=== PATIENT | female | born 1970 | race Caucasian/White ===

== ENCOUNTER 2016-12-26 17:05 | Emergency (ER) | payer OTHER ==
[~2016-12-26] VITALS: Ht 154.9 cm; Wt 140.2 kg
[~2016-12-26 17:05] MED LIST: AMOXICILLIN500 MG PO; CLARITIN10 MG PO; CYCLOBENZAPRINE10 MG PO; GABAPENTIN600 MG PO; GUIATUSS DM SY473 ML PO; IBUPROFEN800 MG PO; LORAZEPAM1 MG PO; NORCO 5-325 TA1 EACH PO; OMEPRAZOLE MAGN20 MG PO; PAXIL40 MG PO; PREDNISONE20 MG PO; PROZAC10 MG PO; SPIRONOLACTONE50 MG PO; SUMATRIPTAN SUC50 MG PO; SYNTHROID100 MCG PO; TOPAMAX25 MG PO; TOPROL XL50 MG; V-C FORTE CAPSUL1 MG PO; VITAMIN D5000 UNIT PO; WELLBUTRIN100 MG PO; ZOFRAN4 MG PO
[2016-12-26] MEDS ORDERED: IMITREX25 MG PO (18:23)
[2016-12-26] MEDS ORDERED: ESTRADIOL1 MG PO (21:23)
[2017-04-05] MEDS ORDERED: FLUOXETINE HCL20 MG PO (13:07)
[2017-04-05] MEDS ORDERED: VITAMIN D35000 UNI1 PO (13:08)
[2017-04-05] MEDS ORDERED: IMITREX100 MG PO (13:08)
== END 2016-12-26 21:34 | disposition home or self-care (01) ==
LOC: ED 17:05
PROC: 0T9B70Z Drainage of Bladder with Drainage Device, Via Natural or Artificial Opening (ICD-10-PCS; principal; 2016-12-26)
DX: N93.8 Other specified abnormal uterine and vaginal bleeding (principal); J45.909 Unspecified asthma, uncomplicated; E03.9 Hypothyroidism, unspecified; F32.9 Major depressive disorder, single episode, unspecified; F41.9 Anxiety disorder, unspecified; F17.200 Nicotine dependence, unspecified, uncomplicated; Z90.49 Acquired absence of other specified parts of digestive tract; Z98.51 Tubal ligation status; Z91.018 Allergy to other foods; Z79.899 Other long term (current) drug therapy
CPT/HCPCS: 51701; 74177; 80053; 81001; 83690; 84703; 85025; 96374; 96375; 99284; J1170; J1885; J2405; J7030; Q9967

== ENCOUNTER 2017-04-11 07:15 | Inpatient (IN) | payer OTHER ==
[~2017-04-11] VITALS: Ht 154.9 cm; Wt 145.2 kg
[~2017-04-11 07:15] MED LIST changes: +ESTRADIOL1 MG PO; +FLUOXETINE HCL20 MG PO; +IMITREX100 MG PO; +IMITREX25 MG PO; +VITAMIN D35000 UNI1 PO
--- NOTE | 2017-04-11 12:38 | NUR ---
04/11/17 Taina Arreaga 1210 PT ARRIVED COUGHING.
--- NOTE | 2017-04-11 13:28 | NUR ---
PT TO ROOM 10 FROM PACU. PT AWAKE, TALKING AND LOOKING ON HER PHONE WHEN BEING WHEELED BACK FROM PACU. UPON ARRIVING TO THE ROOM PT C/O DIZZINESS AND NAUSEA. ZOFRAN GIVEN. R KNEE DRSG C/D/I, ICE TO SURGICAL SITE. PT REQUEST 7UP, SODA GIVEN. NO FURTHER NEEDS AT THIS TIME, CALL LIGHT IN REACH.
--- NOTE | 2017-04-11 14:27 | NUR ---
PT IS AWAKE. SHE IS C/O NAUSEA, SHE IS ASKING FOR CRACKERS AND MILK. SHE REPORTS SOME PAIN IN HER KNEE. NO OTHER C/O'S AT THIS TIME. WILL REASSESS WITHIN THE HOUR.
--- NOTE | 2017-04-11 14:32 | NUR ---
PT REPORTS FEELING REALLY WARM, HER TEMP WAS WNL. FAUZIA BRADLEY TURNED ON TO BLOW COOL AIR ON PT, SHE IS APPRECIATIVE OF THIS.
--- NOTE | 2017-04-11 15:37 | NUR ---
CALLED TO NOTIFY OF CONSULT ORDER
--- NOTE | 2017-04-11 15:43 | NUR ---
PT TO FLOOR VIA STRETCHER WITH INDUSTRIAL MAINTENANCE TECHNICIANLORENZO COLLINS. PT A LITTLE NAUSEOUS. EATING CRACKERS AND DRINKING SODA. STATES SHE HAS TO USE THE BATHROOM, WILL USE THE COMMODE THIS TIME.
[2017-04-11] MEDS ORDERED: CALCIUM 500 +1 EAC1 PO (16:25)
--- NOTE | 2017-04-11 16:29 | NUR ---
PT UP TO BEDSIDE COMMODE. HAD SMALL AMT OF URINE AND BM SMEAR ON BEDDING. CHANGED. PT PIVOT TRANSFER WITH FWW. PT NAUSOUS GIVEN PHENGREN. PT ITCHING GIVEN SUBQ NUBAIN. PT TOLERATED BOTH WELL.
[2017-04-11] MEDS ORDERED: FOLIC ACID1 MG PO (16:32)
--- NOTE | 2017-04-11 16:36 | NUR ---
MED REC COMPLETE WITH [facility] REFILL HISTORY.
--- NOTE | 2017-04-11 17:50 | NUR ---
ADMINISTERED ANTIBIOTIC. PT RESTING IN BED. PT REPORTS PAIN UNDER CONTROL. DENIES NEEDS.
--- NOTE | 2017-04-11 19:41 | NUR ---
ENTERED PT'S ROOM TO RECIEVE BEDSIDE REPORT FROM DAYSHIFT RN. PT WAS AT BEDSIDE ATTEMPTING TO GET UP OUT OF BED. EDUCATED PT ON SAFETY AND FALL PREVENTION AND THE IMPORTANENCE OF CALLING FOR HELP BEFORE GETTING UP. RN MADE IT VERY CLEAR THAT HAVING SOMEONE ASSIST HER IS NOT NEGOTIABLE, THAT A STAFF MEMBER MUST ASSIST PT WHEN SHE GETS UP OR SITS AT THE BEDSIDE. PT IS VERY IMPULSIVE AND DOES NOT APPEAR TO BE VERY COOPERATIVE. SHE APPEARED ANNOYED AT WITH THE EDUCATION GIVEN. PT ALSO STATED "IM NOT BLEEDING I LOOKED UNDER THE BANDAGE," WHILE LIFTING HER DRESSING; RN EDUCATED PT ON THE IMPORTANCE OF LEAVING THE DRESSING IN PLACE AND INFECTION CONTROL REGARDING HER FRESH SURGICAL SITE. BED ALARM ACTIVATED FOR PT SAFETY.
--- NOTE | 2017-04-11 20:25 | NUR ---
PT SITTING UP IN BED. TALKATIVE AND PLEASENT AT THIS TIME. ALERT AND ORIENTED X4. DRESSING IS CLEAN AND DRY, INTACT BUT A LITTLE WRINKLED UP, WILL MONITOR. GAVE ICE CREAM PER PT REQUEST. DENIES NAUSEA. DENIES PRURITIS. FRESH ICE PACKS IN PLACE. FRESH ICE WATER AT BEDSIDE. BED ALARM ACTIVATED. CALL LIGHT IN REACH. NO FURTHER NEEDS. CRYO CUFF, HEEL PROTECTORS, SCD'S IN PLACE.
--- NOTE | 2017-04-11 22:06 | NUR ---
PT SET BED ALARM OFF, ATTEMPTING TO SIT AT BEDSIDE. ASSISTED PT TO SIT UP AT BEDSIDE. PT REPORTS FEELING ANXIOUS, AND FEELS LIKE SHE "NEEDS TO DO SOMETHING." GAVE A WARM BLANKET TO HELP HER RELAX. ALSO ORDERED HER A LUNCH BOX PER REQUEST. PT RATES PAIN AT 5/10 AND STATES "AND ITS GOING DOWN." CALL LIGHT IN REACH.
--- NOTE | 2017-04-11 22:43 | NUR ---
PT SITTING UP AT BEDSIDE, EATING LUNCH BOX. NO NEEDS AT THIS TIME.
--- NOTE | 2017-04-12 00:10 | NUR ---
pt appears to be sleeping. rr wnl and unlabored. lights and tv off. fiance asleep on sofa in room.
--- NOTE | 2017-04-12 01:20 | NUR ---
pt called nurses station. incontinent of urine. assisted pt up to bsc to void. changed linens and cleaned pt up. pt back in bed. complained of pruritis, gave benedryl iv. pt has call light. no further needs.
--- NOTE | 2017-04-12 04:01 | NUR ---
pt sitting up awake in bed, playing on her phone when rn entered room. pt reports 6/10 pain, gave scheduled toradol and oxycodone prn. gave a cola per pt request. call light in reach. no further needs.
--- NOTE | 2017-04-12 05:25 | NUR ---
pt up to bsc, tolerated transfer with 1 person assist and fww well. pt back in bed. rates pain at 5/10, states "im fine right now though." no further needs. call light in reach.
--- NOTE | 2017-04-12 07:27 | NUR ---
REPORT RECIEVED FROM LORENZO CLEMENTS PT AWAKE AND WATCHING TV. STATES THAT SHE DID NOW SLEEP MUCH LAST NIGHT.
--- NOTE | 2017-04-12 08:22 | OR ---
[facility] [address], [place] [address] Signed DATE OF OPERATION: 04/11/2017 SURGEON: Berry Luther MD PREOPERATIVE DIAGNOSIS: End-stage osteoarthritis with varus collapse right knee. POSTOPERATIVE DIAGNOSIS: End-stage osteoarthritis with varus collapse right knee. PROCEDURE: Right total knee arthroplasty. ANESTHESIA: Spinal with sedation. SPECIMENS AND COMPLICATIONS: There were no specimens or complications. TOURNIQUET TIME: 90 minutes. WHAT WAS DONE: The patient was taken to the operating room. After anesthesia was induced and the patient sedated, the right lower extremity was positioned, prepped and draped in the routine sterile fashion. A straight anterior approach was made centered over the patella after exsanguinating the leg and inflating the pneumatic tourniquet with 200 mmHg pressure. The subcutaneous tissue was bluntly spread and an anteromedial arthrotomy performed. The patella was turned on edge and about 9-1/2 mm were trimmed off the posterior aspect of the patella. Drill holes were then made for the 35 mm all-poly patellar button and after that the holes were made, we put the poly trial in place and the caliper indicated we had re-constituted the patellar height of about 24 mm. The patellar trial was then removed. The knee was gently flexed. Using the Jose navigation system, we digitized the distal femur per the Jose protocol. We then resected the distal femur in neutral varus valgus about 2 degrees of flexion and removing 10 mm off the medial side. The femoral wafers were removed. We then transitioned the navigation system to the proximal tibia and again following the [place] computer prompts digitized the proximal tibia. The proximal tibia was then resected in neutral varus valgus, 3 degrees of posterior slope per the Attune surgical protocol and removing about 5 mm off the more warrant medial side. The tibial wafer was then removed Electronically Signed By: BERRY LUTHER MD 04/12/17 0822 PATIENT NAME: MARKEL ESPINO OPERATIVE REPORT DATE OF : 72 PHYSICIAN: BERRY LUTHER MD REPORT #: [id number] REPORT IS CONFIDENTIAL AND NOT TO BE RELEASED WITHOUT AUTHORIZATION [facility] [address], [place] [address] Signed along with remnants of the medial lateral meniscus, the ACL and PCL. Femoral sizing jig was placed on the distal femur. The femur sized to a size# 6. With the jig in 3 degrees of external rotation, the pins were placed and the 4-in-1 cutting block placed on the end of the femur. Anterior, posterior, and chamfer cuts were made. The size #6 notch cutting block was then centered on the distal femur and the notch was cut out and removed. We then placed the femoral trial on the distal femur, drilled the lug hole openings. A size #5 tibial tray was then placed on the proximal tibia with a 5 mm poly trial and the knee was cycled. We had good alignment, good position, and excellent stability. Marked rotational alignment of the tibial component and then prepared the tibia with a standard reamer and a broach. The knee was then copiously irrigated and meticulously dried. The final components were then cemented into place. Cement was allowed to cure with the knee in full extension. Once the cement had cured, we re-cycled the knee and found we could actually upsize the poly to a 7 mm insert and get full extension with excellent varus/valgus balance in flexion and midrange in extension. The knee was copiously irrigated. Final poly was impacted into place and routine wound closure accomplished. A sterile dressing was applied. The patient was awakened to the recovery room where she arrived in stable condition. Counts were correct and antibiotic protocols were followed. Berry Luther MD WFB/MODL /[id number] Electronically Signed By: BERRY LUTHER MD 04/12/17 0822 PATIENT NAME: MARKEL ESPINO OPERATIVE REPORT DATE OF : 72 PHYSICIAN: BERRY LUTHER MD REPORT #: [id number] REPORT IS CONFIDENTIAL AND NOT TO BE RELEASED WITHOUT AUTHORIZATION
--- NOTE | 2017-04-12 08:30 | NUR ---
MORNING ASSESSMENT. PT EUGENIO REG BREAKFAST WELL, TRAY CLEARED. MORNING MEDS GIVEN, SEE EMAR. POC DISCUSSED FOR DAY AND PT AGREEABLE.
--- NOTE | 2017-04-12 09:45 | NUR ---
PT UP IN [place] WITH PT, EUGENIO FAIR. C/O NAUSEA. MEDICATED WITH ZOFRAN 4 MG IV. WATER FILLED.
--- NOTE | 2017-04-12 10:45 | NUR ---
PT SLEEPS. DID NOT DISTURB.
--- NOTE | 2017-04-12 11:52 | NUR ---
PT ASSISTED BACK TO BED. HAD MOVED TO CHAIR WITH ASSISTANCE OF FRIEND. REMINDED THAT A MEMBER OF STAFF HAS TO BE WITH HER TO MOVE. BED ALARM ON. REINFORCED DRESSING THERE IS A SMALL AMT OF RED DRAINAGE. STATES PAIN LEVEL IS ACCEPTABLE.
--- NOTE | 2017-04-12 12:10 | NUR ---
PT EUGENIO REG LUNCH WELL, 100% ATE, TRAY CLEARED. MEDICATED FOR INCISIONAL PAIN. DRESSING LOOSENED PER PT REQUEST.
--- NOTE | 2017-04-12 12:50 | NUR ---
PT C/O UNRELIEVED INCISIONAL PAIN. MEDICATED. OBSERVED DRESSING, NO NEW BLOOD NOTED. ICE TO INCISION. ELEVATED.
--- NOTE | 2017-04-12 16:20 | NUR ---
UP TO BR, USES WALKER WELL. PRODUCTION INTERNSHIP CHANGES LINENS. MEDICATED FOR INCISONAL PAIN. PT C/O ITCHING, BENADRYL GIVEN IV, SEE EMAR. IV SITE WNL.
--- NOTE | 2017-04-12 17:35 | NUR ---
PT EATING REG DINNER, EUGENIO WELL. REPORTS PAIN RELIEF FROM PREVIOUS PAIN MEDS. DENIES FURTHER NEEDS.
--- NOTE | 2017-04-12 18:01 | NUR ---
PT WORKED WITH PHYS. THER X2. WALKED IN MARINO. DRESSING REINFORCED FOR MODERATE RED DRAINAGE. USES FWW TO RESTROOM. VS STABLE. GIVEN BENEDRYL, OXY AND DILAUIDID PO PRN FOR PAIN. NOW RATES 4\10. IMPULSIVE BED ALARM WHILE IN BED.
--- NOTE | 2017-04-12 19:40 | NUR ---
BEDSIDE REPORT RECIEVED FROM DAYSHIFT RN. PT AWAKE WATCHING TV. RR WNL. BED ALARM IN PLACE. REPORTS NO NEEDS AT THIS TIME. CALL LIGHT WIHTIN REACH. PERSONAL ITEMS AT BEDSIDE.
--- NOTE | 2017-04-12 20:44 | NUR ---
VITALS AND I&OS DONE AND CHARTED. BEDSIDE TABLE AND CALL LIGHT WITHIN REACH. PT NEEDS NOTHING ELSE AT THIS TIME.
--- NOTE | 2017-04-12 21:20 | NUR ---
PT IN BED RESTING. FAMILY AT BEDSIDE. REPLACED ICEPACK. FILLED ICE WATER UP. PT REPORTS 10/03 PAIN. SCHEDULED PAIN MEDIACTION GIVE. NO OTHER NEEDS AT THIS TIME. CALL LIGHT WITHIN REACH. BED ALARM IN PLACE. PERSONAL ITEMS AT BEDSIDE.
--- NOTE | 2017-04-12 22:57 | NUR ---
pt reports pain still 7/10 after scheduled pain medication. 10mg oxy codone give. will reassess in 1 hour to see if pain is beter.
--- NOTE | 2017-04-13 00:34 | NUR ---
pt experiencing pain increase. from 10/03 to 11/03 now. giving full dose of dilaudid ordered 8 mg.
--- NOTE | 2017-04-13 01:17 | NUR ---
PT ASLEEP. RESPIRATIONS WNL. CALL LIGHT WITHIN REACH. NO FURTHER NEEDS AT THIS TIME.
--- NOTE | 2017-04-13 02:29 | NUR ---
pt awake when i entered the room. helped up to the bathroom. pain 5/10 at this time. pt wanted to sit up in the chair. no other needs at this time. had good conversation.
--- NOTE | 2017-04-13 03:03 | NUR ---
helped pt back to bed. pain 5/10. watching tv. filled ice water. applied ice packs to knee. arvind wrap in place with dried drainage from earlier. no further leaks tided up pt room and dumped garbages. no further needs at this time. call light within reach. personal items at bedside.
--- NOTE | 2017-04-13 05:08 | NUR ---
PT HAD A GOOD. NIGHT. PAIN UNCONTROLED AT BEGINNING OF SHIFT. PAIN MEDICATION GIVE ORDERED. PAIN THIS MORNING WAS 4/10. TOTAL RIGHT KNEE DONE. ICE PACK ON RIGHT KNEE SBA WITH FWW. REGULAR DIET.
--- NOTE | 2017-04-13 05:21 | NUR ---
PT REQUESTED VITALS AND MEDICATION SO SHE COULD SAVANNA A NAP. NO FURTHER NEEEDS AT THIS TIME. CALL LIGHT WITHIN REACH.PERSONAL ITEMS AT BEDSIDE.
--- NOTE | 2017-04-13 05:29 | NUR ---
REFRESHED ICE PACKS. NO OTHER NEEDS AT THIS TIME CALL LIGHT WITHIN REACH.
--- NOTE | 2017-04-13 08:22 | NUR ---
BEDSIDE REPORT RECEIVED FROM STARR VENTURA AT 0705. PT SLEEPING. DIDN'T WAKE UP WHEN BEDSIDE REPORT GIVEN IN ROOM. PT AWAKE WATCHING TELEVISION NOW. REPORTS WANTING TO SLEEP TODAY. INFORMED OF PLAN TO HAVE PHYSICAL THERAPY X2 TODAY. RIGHT KNEE DRESSING C/D/I. NO DRAINAGE NOTED. EDUCATED TO NOT MANIPULATE DRESSING TO AVOID INFECTION. LEFT FOREARM IV SALINE LOCKED. MORNING MEDS GIVEN SCHEDULED. ATE 100% OF BREAKFAST. BELONGINGS AND CALL LIGHT WITHIN REACH. PAIN 5/10 IN RIGHT KNEE. INFORMED PT TO CALL WHEN NEEDS TO GET UP TO BATHROOM. BED ALARM ON.
--- NOTE | 2017-04-13 09:17 | NUR ---
DR LUTHER IN TO ASSESS PT. PAIN CONTROLLED WELL. PLAN TO DISCHARGE TOMORROW.
--- NOTE | 2017-04-13 09:19 | NUR ---
PT WORKING WITH PHYSICAL THERAPY NOW.
--- NOTE | 2017-04-13 09:57 | NUR ---
RX NOT LEFT ON CHART FOR DISCHARGE. MESSAGE LEFT WITH DEACON IN HIS OFFICE TO SEND RX ORDERS.
--- NOTE | 2017-04-13 09:59 | NUR ---
MESSAGE LEFT WITH DAY SURGERY FOR DR LUTHER TO RECEIVE PAIN RX SCRIPTS WELL.
--- NOTE | 2017-04-13 10:09 | NUR ---
PT IS SITTING UP IN BED WITH CALL LIGHT IN REACH. PT HAS BRUSHED HER TEETH AND WASHED HER FACE. PT DOES NOT WANT TO SHOWER AT THE MOMENT, WILL ASK AGAIN LATER. PT DID NOT NEED ANYTHING AT THE MOMENT
--- NOTE | 2017-04-13 10:55 | NUR ---
ICE PACK PROVIDED TO PATIENT FOR RIGHT KNEE. PILLOWCASE PROVIDED IF NEEDED TO CREATE A BARRIER OVER INCISION AND ICE PACK.
[2017-04-13] MEDS ORDERED: TYLENOL325 MG PO (11:51)
[2017-04-13] MEDS ORDERED: ASPIRIN325 MG PO (11:52)
[2017-04-13] MEDS ORDERED: PERCOCET 5-3251 EACH PO (11:52)
[2017-04-13] MEDS ORDERED: DILAUDID4 MG PO (11:53)
--- NOTE | 2017-04-13 13:56 | NUR ---
ASSISTED PT 1PA/SBA TO BATHROOM. TOLERATED WELL. ICE TO RIGHT KNEE. WILL WORK WITH PHYSICAL THERAPY SOON. PAIN 7/10 IN RIGHT KNEE. OPEN TO AIR INCISION. WELL APPROXIMATED.
--- NOTE | 2017-04-13 14:05 | NUR ---
FAXED ORDER AND CHART NOTES FOR A WALKER TO [facility]. THESE INCLUDED FACESHEET, ORDER, H AND P, OP NOTE, PROG NOTE, PT EVAL AND NOTES. SPOKE WITH VALENICA AT [facility].
--- NOTE | 2017-04-13 14:06 | NUR ---
PT IS RESTING IN BED WITH CALL LIGHT IN REACH. PT DID NOT NEED ANYTHING AT THE MOMENT
--- NOTE | 2017-04-13 15:34 | NUR ---
TALKED WITH PT, HER NEW WALKER IS ALREADY HERE.
--- NOTE | 2017-04-13 16:45 | NUR ---
TORADOL/TYLENOL SCHEDULED. OXYCODONE X1. S/L. WORKING WITH PHYSICAL THERAPY. 1PA WITH FWW. BED ALARM ON FOR COMPLIANCE. REGULAR DIET. WILL DISCHARGE TOMORROW.
--- NOTE | 2017-04-13 17:55 | NUR ---
pt up in recliner with significant other at bedside. sharing dinner with SO. pain well controlled now. will check with patient before shift change on pain control.
--- NOTE | 2017-04-13 18:16 | NUR ---
PT SHOWERED WITH MINIMAL ASSISTANCE AND IS NOW RESTING IN BED. LINENS WERE CHANGED
--- NOTE | 2017-04-13 19:20 | NUR ---
SHIFT REPORT RECIEVED. DAY SHIFT RN STEW ADMINISTERED PRN PAIN AND NAUSEA MEDS PER PATIENT REQUEST. PATIENT RECENTLY OUT OF THE SHOWER. SITTING UP ON EDGE OF THE BED. DENIES FURTHER NEEDS AT THIS TIME. CALL LIGHT IN REACH. REMINDED PATIENT NOT TO GET OUT OF BED WITHOUT CALLING FOR ASSISTANCE, PATIENT AGREED.
--- NOTE | 2017-04-13 20:30 | NUR ---
SCHEDULED PAIN MEDS GIVEN PER ORDER. PATIENT REPORTS 6/10 PAIN. PATIENT RESTING IN BED TURNED TO HERLEFT SIDE WITH LEFT KNEE ELEVATED ON A PILLOW OF NETURAL POSITION. ICE PACKS IN PLACE. HEEL PROTECTORS AND SCD IN PLACE. PATIENT ON ROOM AIR, LUNG SOUNDS ARE CLEAR IN LEFT LOBES. FINE CRACKLES HEAR IN RIGHT LOBES BUT CLEARED WITH A COUGH. BOWEL SOUNDS ACTIVE, ABD SOFT AND NONTENDER. TOLERATING REGULAR DIET. REMINDED PATIENT TO USE HER CALL LIGHT IF SHE NEEDS TO GET OUT OF BED, PATIENT AGREED. PATIENT STATED THAT SHE HAD BEEN "TALKED TO" BY DAYSHIFT AND SHE DID NOT WANT THE BED ALARM ON AGAIN. RN AGREED TO LEAVE BED ALARM OFF AT THIS TIME. CALL LIGHT IN REACH.
--- NOTE | 2017-04-13 20:58 | NUR ---
VITALS AND I&OS DONE AND CHARTED. HELPED HER GET HER SOCKS ON AND HEEL PROTECORS WELL. PT STATES SHE NEEDS NOTHING ELSE AT THIS TIME ,SHE WANTS TO GO TO SLEEP. CALL LIGHT AND BEDSIDE TABLE WITHIN REACH.
--- NOTE | 2017-04-13 23:00 | NUR ---
PT CALLED OUT FOR ASSISTANCE. ALL PERSONEL ON THE FLOOR WAS IN ROOMS ASSISTING PT AT THAT TIME AND I TOLD PT THAT WE WILL BE WITH HER DONNA. WHEN I OPENED HER DOOR, I FOUND PT WALKING AROUND IN HER ROOM WITH HER FWW. I DIRECTED PT TO NOT WALK AROUND ON HER OWN. PT NOW IS BACK IN BED WITH BED ALARM ON.
--- NOTE | 2017-04-14 00:10 | NUR ---
PATIENT RESTING IN BED USING HER CELL PHONE. STATES THAT HER PAIN IS "GOOD" RIGHT NOW. REQUESTED A SNACK, CRACKERS AND ICE CREAM PROVIDED. PATIENT HAS A SMALL AREA ON HER RIGHT WRIST AREA THAT IS RED AND SLIGHTLY RASIED. PATIENT HAS BEEN ITCHING THIS AREA. SHE REPORTS THAT SHE REGULARLY USED A CORTISONE CREAM AT HOME. ICE PACK APPLIED TO AREA TO REDUCE THE ITCHING. NO ORDERS FOR ANTI-ITCH CREAM ARE AVILABLE AT THIS TIME. PATIENT DENIES NEED TO CONTACT MD AND STATES SHE CAN MAKE DUE WITH THE ICE PACK AT THIS TIME. WILL CONTINUE TO MONITOR. BED ALARM IN USE. REMINDED PATIENT TO CALL FOR ASSISTANCE. CALL LIGHT IN REACH.
--- NOTE | 2017-04-14 01:31 | NUR ---
PER PT REQUEST I HELPED HER TO THE BATHROOM AND BACK WITH HER WALKER. GOT HER REPOSITIONED IN BED. PUT ICE PACKS BACK ON HER KNEE. HEEL PROTECTORES PUT BACK ON. SCD PLUGGED BACK IN AND TURNED ON. PER PT REQUEST I GOT HER A BOTTLE OF LOTION FOR AROUND HER KNEE, SHE HAD SOME DRY SKIN SHE SAID. BEDSIDE TABLE AND CALL LIGHT WITHIN REACH. I ASKED HER TO PLEASE CALL IF SHE NEEDED ANYTHING ELSE OR NEEDED TO GET UP FOR ANYTHING. SHE AGREED.
--- NOTE | 2017-04-14 01:35 | NUR ---
PATIENT UP TO THE BATHROOM. SHE USED THE CALL LIGHT APPROPRIATELY. SCHEDULED PAIN MEDS GIVEN. PAIN 5/10. FRESH ICE PACKS APPLIED. PATIENT WATCHING TV, STATES SHE IS NOT TIRED AND BORED FROM BEING IN BED ALL DAY. ENCOURAGED PATIENT TO REST. BED ALARM ON. CALL LIGHT IN REACH. ALOE CREAM PROVIDED FOR ITCHING SKIN ON ARMS.
--- NOTE | 2017-04-14 03:27 | NUR ---
PATIENT RESTING IN BED USING HER CELL PHONE. PATIENT'S NEPHEW IS IN THE ROOM. NO NEEDS AT THIS TIME. CALL LIGHT IN REACH. BED ALARM SET.
--- NOTE | 2017-04-14 05:15 | NUR ---
PATIENT SITTING UP IN RECLINER. DENIES NEEDS AT THIS TIME. CALL LIGHT IN REACH.
--- NOTE | 2017-04-14 07:00 | NUR ---
BEDSIDE HANDOFF REPORT RECEIVED FROM AERIAL GUNNER SUPERINTENDENT RN. PT RESTING IN BED. PT DENIES NEEDS AT THIS TIME. DISCUSSED PLAN FOR DISCHARGE TODAY.
--- NOTE | 2017-04-14 07:05 | DS ---
[facility] [address] [place], [place] [address] Signed ADMISSION DATE: 04/11/2017 DISCHARGE DATE: 04/14/2017 FINAL DIAGNOSIS: End-stage osteoarthritis, right knee. PROCEDURES PERFORMED: Right total knee arthroplasty (posterior stabilized Attune). There were no complications of her hospitalization. HISTORY OF PRESENT ILLNESS: The patient is a 46-year-old, white female with end-stage osteoarthritis in both of her knees. She has reached the point where she is no longer able to complete her ADLs because of pain and she no longer gets any symptomatic relief from conservative modalities. HOSPITAL COURSE: She was admitted to day surgery on the 11 of April. She was taken to the operating room, where she underwent a cemented total knee arthroplasty using the Attune knee system with a PS femoral component and poly. Postoperatively, she has done extraordinarily well. She was independently ambulatory from Day 1, although she has struggled a little bit with stairs. At the present time, her pain is well controlled with alternating Dilaudid and oxycodone and she has been placed on Xarelto for DVT prophylaxis. Physical therapy feels she will be safe for discharge after morning physical therapy. We will order her a front wheeled walker along with Dilaudid and oxycodone to take for pain. We will switch her DVT prophylaxis to aspirin for economic considerations and have her continue with the Tylenol. We have arranged for outpatient physical therapy 3 times a week for the next 4 to 6 weeks and she will follow up in the office in 6 weeks. MD VIRGIE MaciasB/EDUARDOL /[id number] Electronically Signed By: BERRY LUTHER MD 04/14/17 0705 PATIENT NAME: MARKEL ESPINO DISCHARGE SUMMARY DATE OF : 72 PHYSICIAN: BERRY LUTHER MD REPORT #: [id number] REPORT IS CONFIDENTIAL AND NOT TO BE RELEASED WITHOUT AUTHORIZATION [address] [place], [place] [address] Signed Electronically Signed By: BERRY LUTHER MD 04/14/17 0705 PATIENT NAME: MARKEL ESPINO DISCHARGE SUMMARY DATE OF : 72 PHYSICIAN: BERRY LUTHER MD REPORT #: [id number] REPORT IS CONFIDENTIAL AND NOT TO BE RELEASED WITHOUT AUTHORIZATION
--- NOTE | 2017-04-14 08:30 | NUR ---
PT RESTING IN BED. PT ASSISTED TO BATHROOM AND THEN TO CHAIR. PT REQUESTING PAIN MEDICATION, RATING PAIN 7/10 TO RIGHT KNEE, GIVEN 8 MG PO DILAUDID. PT LUNG SOUNDS CLEAR WITH DIMINISHED BASES, ON ROOM AIR. PT DENIES NAUSEA, BOWEL TONES ACTIVE, TOLERATING REGULAR DIET. PT WITH INCISION TO RIGHT KNEE, SURGICAL TAPE BEGINNING TO PEEL, REINFORCED WITH GAUZE AND TAPE. CMS INTACT, PULSES PALPABLE. DISCUSSED DISCHARGE WITH PT. PT DENIES OTHER NEEDS AT THIS TIME.
--- NOTE | 2017-04-14 11:42 | NUR ---
PROVIDED PATIENT WITH DISCHARGE EDUCATION, STERI STRIPS REINFORCED KNEE DRSG. PATIENT VERBALIZED UNDERSTANDING OF PAIN MEDICAITON AND FOLLOW UP WITH PHYSCIAL THERAPY. PATIENT ABLE TO VERBALIZE SIGNS AND SYMPTOMS OF INFECTIONS
--- NOTE | 2017-04-14 13:34 | NUR ---
FAXED CHART NOTES AND ORDERS TO [facility] OP PT. SENT FACESHEET, H AND P, OP NOTE. PROG NOTES, PT EVAL AND NOTES. RECIEVED FAX OCNFIRMATION.
== END 2017-04-14 14:45 | disposition home or self-care (01) | DRG 470 ==
LOC: DS 07:15 → MS 15:30 → DS 15:31 → MS 04-14 14:45
PROVIDERS: ADMIT Orthopaedic Surgery
PROC: 0SRC0J9 Replacement of Right Knee Joint with Synthetic Substitute, Cemented, Open Approach (ICD-10-PCS; principal; 2017-04-11 09:15)
DX: M17.11 Unilateral primary osteoarthritis, right knee (principal); E03.9 Hypothyroidism, unspecified; G43.909 Migraine, unspecified, not intractable, without status migrainosus; N18.9 Chronic kidney disease, unspecified; Z87.891 Personal history of nicotine dependence
CPT/HCPCS: 01402; 36415; 73560; 80048; 85025; 97110; 97116; 97161; 97530; C1713; C1776; G8978; G8979; J0690; J1200; J1885; J2250; J2274; J2300; J2370; J2405; J2550; J2704; J3010; J7120

== ENCOUNTER 2017-09-11 16:49 | Emergency (ER) | payer OTHER ==
[~2017-09-11] VITALS: Ht 154.9 cm; Wt 145.2 kg
[~2017-09-11 16:49] MED LIST changes: +ASPIRIN325 MG PO; +CALCIUM 500 +1 EAC1 PO; +DILAUDID4 MG PO; +FOLIC ACID1 MG PO; +PERCOCET 5-3251 EACH PO; +TYLENOL325 MG PO
== END 2017-09-11 17:10 | disposition home or self-care (01) ==
LOC: ED 16:49
DX: M25.561 Pain in right knee (principal); Z96.651 Presence of right artificial knee joint; W10.9XXA Fall (on) (from) unspecified stairs and steps, initial encounter

== ENCOUNTER 2019-01-04 09:12 | Emergency (ER) | payer OTHER ==
[~2019-01-04] VITALS: Ht 154.9 cm; Wt 116.6 kg
--- OUTSIDE RECORDS SUMMARY | ~2019-01-04 | XMS | Clinical Summary ---
Demographics + + + | Address | [address] | | | [place] [address] | + + + | Home Phone | | + + + | Preferred Language | Unknown | + + + | Marital Status | | + + + | Protestant Affiliation | 1027 | + + + | Race | Unknown | + + + | Ethnic Group | Unknown | + + + Author + + + | Author | Formerly [facility] (Historical as of | | | 11-10-18) | + + + | Organization | [facility] (Historical as of | | | 11-10-18) | + + + | Address | Unknown | + + + | Phone | Unavailable | + + + Support + + + + + | Name | Relationship | Address | Phone | + + + + + | Supa Dawkins | ECON | [address] | | | | | [place] [address] | | + + + + + | Taisha Gutierrez | ECON | Unknown | | + + + + + Care Team Providers + +------+ + | Care Machine Rough Rounder Name | Role | Phone | + +------+ + | Fer Camacho MD | PP | | + +------+ + Allergies + + + + + + | Active Allergy | Reactions | Severity | Noted | Comments | | | | | Date | | + + + + + + | Nsaids | Other (See Comments) | Medium | 01/05/20 | Reports "hurts | | | | | 14 | kidneys" | + + + + + + Current Medications + + +---------+---------+------+------+-------+ | Prescription | Sig. | Disp. | Refills | Star | End | Statu | | | | | | t | Date | s | | | | | | Date | | | + + +---------+---------+------+------+-------+ | spironolactone | Take 50 mg by mouth | | | | | Activ | | (ALDACTONE) 50 MG | daily. | | | | | e | | tablet | | | | | | | + + +---------+---------+------+------+-------+ | loratadine | Take 10 mg by mouth | | | | | Activ | | (CLARITIN) 10 MG | daily. | | | | | e | | tablet | | | | | | | + + +---------+---------+------+------+-------+ | ondansetron | Take 4 mg by mouth 3 | | | | | Activ | | (ZOFRAN) 4 MG tablet | (three) times daily | | | | | e | | | as needed for | | | | | | | | Nausea. | | | | | | + + +---------+---------+------+------+-------+ | omeprazole | Take 20 mg by mouth | | | | | Activ | | (PRILOSEC) 20 MG | every morning before | | | | | e | | capsule | breakfast. | | | | | | + + +---------+---------+------+------+-------+ | MULTIPLE | Take 1 tablet by | | | | | Activ | | VITAMIN-FOLIC ACID | mouth daily. | | | | | e | | PO | | | | | | | + + +---------+---------+------+------+-------+ | levothyroxine | Take 100 mcg by | | | | | Activ | | (SYNTHROID) 100 MCG | mouth daily. | | | | | e | | tablet | | | | | | | + + +---------+---------+------+------+-------+ | cyclobenzaprine | Take 10 mg by mouth | | | | | Activ | | (FLEXERIL) 10 MG | nightly as needed | | | | | e | | tablet | for Muscle spasms. | | | | | | + + +---------+---------+------+------+-------+ | acetaminophen | Take 325-650 mg by | | | | | Activ | | (TYLENOL) 325 MG | mouth every 6 (six) | | | | | e | | tablet | hours as needed for | | | | | | | | Pain or Fever. | | | | | | + + +---------+---------+------+------+-------+ | topiramate | Take 50 mg by mouth | | | | | Activ | | (TOPAMAX) 25 MG | 2 (two) times daily. | | | | | e | | tablet | | | | | | | + + +---------+---------+------+------+-------+ | Cholecalciferol | Take 1 tablet by | | | | | Activ | | 2000 UNITS TABS | mouth daily. | | | | | e | + + +---------+---------+------+------+-------+ | triamcinolone | Apply topically 2 | | | | | Activ | | (KENALOG) 0.1 % | (two) times daily. | | | | | e | | cream | | | | | | | + + +---------+---------+------+------+-------+ | prazosin | Take 1 capsule by | 30 | 11 | 10/1 | | Activ | | (MINIPRESS) 1 MG | mouth nightly. | capsule | | 3/20 | | e | | capsule | | | | 14 | | | + + +---------+---------+------+------+-------+ Active Problems + + + | Problem | Noted Date | + + + | PTSD (post-traumatic stress disorder) | 01/06/2014 | + + + | In utero drug exposure | 01/06/2014 | + + + | Suicide attempt | 01/05/2014 | + + + | Altered mental status | 01/05/2014 | + + + | Intentional drug overdose (HCC) | 01/05/2014 | + + + | Methamphetamine abuse (HCC) | 01/05/2014 | + + + | Essential hypertension, benign | 01/05/2014 | + + + | UTI (lower urinary tract infection) | 01/05/2014 | + + + | Anxiety and depression | 01/05/2014 | + + + | Asthma in adult | 01/05/2014 | + + + | Current every day smoker | 01/05/2014 | + + + | Laceration of neck | 01/05/2014 | + + + | Substance abuse (HCC) | 01/05/2014 | + + + Immunizations + + + + | Name | Dates Previously Given | Next Due | + + + + | INFLUENZA | 01/06/2014 | | | QUADRIVALENT 36+ MO | | | | PRESERV FREE | | | + + + + Family History + + +------+ + | Medical History | Relation | Name | Comments | + + +------+ + | Heart disease | Father | | | + + +------+ + | High cholesterol | Father | | | + + +------+ + | Hypertension | Father | | | + + +------+ + | Cancer | Mother | | | + + +------+ + | Hypertension | Mother | | | + + +------+ + + +------+--------+ + | Relation | Name | Status | Comments | + +------+--------+ + | Father | | | | + +------+--------+ + | Mother | | | | + +------+--------+ + Social History + +-------+ +--------+------+ | Tobacco Use | Types | Packs/Day | Years | Date | | | | | Used | | + +-------+ +--------+------+ | Current Every Day | | 1 | | | | Smoker | | | | | + +-------+ +--------+------+ + + | Tobacco Cessation: Ready to Quit: No | + + + + +---------+ + | Alcohol Use | Drinks/We | oz/Week | Comments | | | ek | | | + + +---------+ + | Yes | | | | + + +---------+ + + + + | Sex Assigned at | Date Recorded | | | | + + + | Not on file | | + + + Last Filed Vital Signs + + + + | Vital Sign | Reading | Time Taken | + + + + | Blood Pressure | 133/78 | 01/07/2014 11:26 AM PDT | + + + + | Pulse | 61 | 01/07/2014 11:26 AM PDT | + + + + | Temperature | 36.7 C (98 F) | 01/07/2014 11:26 AM PDT | + + + + | Respiratory Rate | 18 | 01/07/2014 11:26 AM PDT | + + + + | Oxygen Saturation | 98% | 01/07/2014 11:26 AM PDT | + + + + | Inhaled Oxygen | - | - | | Concentration | | | + + + + | Weight | 91 kg (200 lb 9.9 | 01/06/2014 7:14 AM PDT | | | oz) | | + + + + | Height | 157.5 cm (5' 2") | 01/06/2014 7:14 AM PDT | + + + + | Body Mass Index | 36.69 | 01/06/2014 7:14 AM PDT | + + + + Plan of Treatment + + + + + | Health Maintenance | Due Date | Last Done | Comments | + + + + + | Vaccine: | | | | | Dtap/Tdap/Td (1 - | 1 | | | | Tdap) | | | | + + + + + | Cervical Cancer | | | | | Screening (Pap) | 2 | | | + + + + + | Vaccine: Influenza | | 01/06/2014 | | | (#1) | 9 | | | + + + + + Results Not on filefrom Last 3 Months Insurance + +--------+ +------+-------+ + | Payer | Benefi | Subscriber | Type | Phone | Address | | | t Plan | ID | | | | | | / | | | | | | | Group | | | | | + +--------+ +------+-------+ + | MEDICAID | [place] | [id number] | | | [address] | | | N | | | | [place] | | | [place] | | | | [phone] | | | ACCOUNT DEVELOPMENT EXECUTIVE | | | | | + +--------+ +------+-------+ + + +--------+ +--------+ + + | Guarantor Name | Accoun | Relation to | Date | Phone | Billing Address | | | t Type | Patient | of | | | | | | | | | | + +--------+ +--------+ + + | MARKEL DAWKINS | Person | Self [birth year] | Home: | [address] | | | al/Fam | | 1971 | [phone] | [place] [address] | | | zeus | | [phone] | | + +--------+ +--------+ + +
--- OUTSIDE RECORDS SUMMARY | ~2019-01-04 | XMS | Clinical Summary ---
Demographics + + + | Address | [address] | | | [place] [address] | + + + | Home Phone | | + + + | Preferred Language | Unknown | + + + | Marital Status | | + + + | Sabianism Affiliation | 1027 | + + + | Race | Unknown | + + + | Ethnic Group | Unknown | + + + Author + + + | Author | [facility] (Historical as of | | | 11-10-18) | + + + | Organization | [facility] (Historical as of | | | 11-10-18) | + + + | Address | Unknown | + + + | Phone | Unavailable | + + + Support + + + + + | Name | Relationship | Address | Phone | + + + + + | Supa Dawkins | ECON | [address] | | | | | [place] [address] | | + + + + + | Taisha Gutierrez | ECON | Unknown | | + + + + + Care Team Providers + +------+ + | Care Paint Department Supervisor Name | Role | Phone | + [...] +------+-------+ + | MEDICAID | [place] | [id number] | | | [address] | | | N | | | | [place] | | | [place] | | | | [phone] | | | HORSES OR MULES TEAMSTER | | | | | + +--------+ [...] | | al/Fam | | 1971 | [phone] | [place] [address] | | | zeus | | | [phone] | | + +--------+ +--------+ + +
[~2019-01-04 09:12] MED LIST changes: +BACTRIM DS TAB1 EACH PO
== END 2019-01-04 10:15 | disposition home or self-care (01) ==
LOC: ED 09:12
DX: T21.21XA Burn of second degree of chest wall, initial encounter (principal); T31.0 Burns involving less than 10% of body surface; X19.XXXA Contact with other heat and hot substances, initial encounter; J45.909 Unspecified asthma, uncomplicated; G43.909 Migraine, unspecified, not intractable, without status migrainosus; E03.9 Hypothyroidism, unspecified; F32.9 Major depressive disorder, single episode, unspecified; F17.200 Nicotine dependence, unspecified, uncomplicated; Z88.6 Allergy status to analgesic agent; Z91.018 Allergy to other foods; Z79.899 Other long term (current) drug therapy
CPT/HCPCS: 99283

== ENCOUNTER 2019-09-17 18:05 | Emergency (ER) | payer OTHER ==
[~2019-09-17] VITALS: Ht 154.9 cm; Wt 113.4 kg
[~2019-09-17 18:05] MED LIST changes: +EUTHYROX100 MCG PO
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
== END 2019-09-17 22:21 | disposition home or self-care (01) ==
LOC: ED 18:05
DX: T67.5XXA Heat exhaustion, unspecified, initial encounter (principal); G43.909 Migraine, unspecified, not intractable, without status migrainosus; J45.909 Unspecified asthma, uncomplicated; E03.9 Hypothyroidism, unspecified; F32.9 Major depressive disorder, single episode, unspecified; F41.9 Anxiety disorder, unspecified; F17.200 Nicotine dependence, unspecified, uncomplicated; Z88.6 Allergy status to analgesic agent; Z91.018 Allergy to other foods; Z79.899 Other long term (current) drug therapy
CPT/HCPCS: 80053; 85025; 96361; 96374; 96375; 99284-25; J1200; J1885; J2765; J7030

== ENCOUNTER 2022-03-11 14:26 | Emergency (ER) | payer OTHER ==
[~2022-03-11] VITALS: Ht 154.9 cm; Wt 117.0 kg
[~2022-03-11 14:26] MED LIST changes: +AUGMENTIN 875-1 EACH PO; +HYDROCODON-ACE1 EA10 PO
[2022-03-11] MEDS ORDERED: PREDNISONE20 MG PO (18:57)
[2022-03-11] MEDS ORDERED: HYDROCODON-ACE1 EA10 PO (18:57)
== END 2022-03-11 19:14 | disposition home or self-care (01) ==
LOC: ED 14:26
DX: M54.42 Lumbago with sciatica, left side (principal); J45.909 Unspecified asthma, uncomplicated; G43.909 Migraine, unspecified, not intractable, without status migrainosus; E03.9 Hypothyroidism, unspecified; F17.200 Nicotine dependence, unspecified, uncomplicated; Z88.6 Allergy status to analgesic agent; Z91.018 Allergy to other foods; Z79.899 Other long term (current) drug therapy
CPT/HCPCS: 73502; 96372; 99283-25; J1885

== ENCOUNTER 2022-10-12 21:04 | Emergency (ER) | payer OTHER ==
[~2022-10-12] VITALS: Ht 154.9 cm; Wt 108.9 kg
--- OUTSIDE RECORDS SUMMARY | ~2022-10-12 | XMS | Continuity of Care Document ---
Demographics + + + | Address | [address] [facility] [address] | | | [place] [address] | + + + | Preferred Language | Unknown | + + + | Marital Status | | + + + | Religion Affiliation | Unknown | + + + | Race | White | + + + | Ethnic Group | Not or | + + + Author + + + | Author | [facility] | + + + | Organization | [facility] | + + + | Address | [address] | | | [place] [address] | + + + | Phone | | + + + Care Team Providers + + + + | Care Elementary Tutor Name | Role | Phone | + + + + Unavailable | Unavailable | + + + + Unavailable | Unavailable | + + + + Allergies and Intolerances + + + + + + | date | description | facility | reaction | severity | + + + + + + | (no date) | [place] | [facility] | (no reaction) | (no severity) | | [facility] | | | + + + + + + | (no date) | [facility] | [facility] | (no reaction) | (no severity) | | | | [facility] | | | + + + + + + Encounters No information. Functional Status No information. Immunizations + + + + | date | description | facility | + + + + | 2020-07-21 00:00 | Tdap | [facility] | + + + + Medications + + + + | date | description | facility | + + + + | 2022-03-11 00:00 | ONDANSETRON HCL | [facility] | + + + + | 2022-03-11 00:00 | OXYCODONE | [facility] | | | HCL/ACETAMINOPHEN | | + + + + | 2022-03-11 00:00 | CALCIUM CARBONATE/VITAMIN | [facility] | | | D3 | | + + + + | 2022-03-11 00:00 | TOPIRAMATE | [facility] | + + + + | 2016-12-26 00:00 | ESTRADIOL | [facility] | + + + + | 2022-03-11 00:00 | IBUPROFEN | [facility] | + + + + | 2022-03-11 00:00 | LORAZEPAM | [facility] | + + + + | 2022-03-11 00:00 | OMEPRAZOLE MAGNESIUM | [facility] | + + + + | 2022-03-11 00:00 | SPIRONOLACTONE | [facility] | + + + + | 2022-03-11 00:00 | FLUOXETINE HCL | [facility] | + + + + | 2022-03-11 00:00 | LORATADINE | [facility] | + + + + | 2022-03-11 00:00 | SUMATRIPTAN SUCCINATE | [facility] | + + + + | 2022-03-11 00:00 | PAROXETINE HCL | [facility] | + + + + | 2022-03-11 00:00 | ASPIRIN | [facility] | + + + + | 2022-03-11 00:00 | SUMATRIPTAN SUCCINATE | [facility] | + + + + | 2022-03-11 00:00 | AMOXICILLIN | [facility] | + + + + | 2022-03-11 00:00 | FLUOXETINE HCL | [facility] | + + + + | 2022-03-11 00:00 | GABAPENTIN | [facility] | + + + + | 2015-05-31 00:00 | predniSONE | [facility] | + + + + | 2022-03-11 00:00 | predniSONE | [facility] | + + + + | 2022-03-11 00:00 | SUMATRIPTAN SUCCINATE | [facility] | + + + + | 2022-03-11 00:00 | ACETAMINOPHEN | [facility] | + + + + | 2020-07-21 00:00 | AMOXICILLIN/POTASSIUM CLAV | [facility] | | | | | + + + + | 2022-03-11 00:00 | CYCLOBENZAPRINE HCL | [facility] | + + + + | 2018-05-27 00:00 | | [facility] | | | SULFAMETHOXAZOLE/TRIMETHOPR | | | | IM DS | | + + + + | 2019-08-25 00:00 | | [facility] | | | SULFAMETHOXAZOLE/TRIMETHOPR | | | | IM DS | | + + + + | 2020-07-21 00:00 | HYDROCODONE | [facility] | | | BIT/ACETAMINOPHEN | | + + + + | 2022-03-11 00:00 | HYDROCODONE | [facility] | | | BIT/ACETAMINOPHEN | | + + + + | 2015-08-21 00:00 | HYDROCODONE | [facility] | | | BIT/ACETAMINOPHEN | | + + + + | 2019-08-25 00:00 | HYDROCODONE | [facility] | | | BIT/ACETAMINOPHEN | | + + + + | 2022-03-11 00:00 | HYDROCODONE | [facility] | | | BIT/ACETAMINOPHEN | | + + + + | 2022-03-11 00:00 | CHOLECALCIFEROL (VITAMIN | [facility] | | | D3) | | + + + + | 2022-03-11 00:00 | METOPROLOL SUCCINATE | [facility] | + + + + | 2022-03-11 00:00 | HYDROMORPHONE HCL | [facility] | + + + + | 2022-03-11 00:00 | Levothyroxine Sodium | [facility] | + + + + | 2022-03-11 00:00 | LEVOTHYROXINE SODIUM | [facility] | + + + + | 2022-03-11 00:00 | BUPROPION HCL | [facility] | + + + + | 2015-05-31 00:00 | | [facility] | | | GUAIFENESIN/DEXTROMETHORPHA | | | | N | | + + + + Problems + + + + | date | description | facility | + + + + | 2014-01-04 00:00 | Drug overdose | [facility] | + + + + | 2015-04-20 00:00 | Headache | [facility] | + + + + | 2015-05-26 00:00 | Migraine | [facility] | + + + + | 2015-05-26 00:00 | Acute bronchitis | [facility] | + + + + | 2015-05-31 00:00 | Acute pharyngitis | [facility] | + + + + | 2015-05-31 00:00 | Asthma with acute | [facility] | | | exacerbation in adult | | + + + + | 2015-08-21 00:00 | Bursitis of left shoulder | [facility] | + + + + | 2015-10-12 00:00 | Flank pain | [facility] | + + + + | 2015-11-11 00:00 | Migraine headache | [facility] | + + + + | 2016-12-26 00:00 | Dysfunctional uterine | [facility] | | | bleeding | | + + + + | 2017-09-11 00:00 | Encounter for medical | [facility] | | | screening examination | | + + + + | 2019-09-17 00:00 | Heat exhaustion | [facility] | + + + + | 2020-07-21 00:00 | Horse bite | [facility] | + + + + | 2022-03-11 00:00 | Sciatica | [facility] | + + + + Procedures No information. Results/Labs No information. Social History No information. Vital Signs + + + +---------+ | date | measurement | value | units | + + + +---------+ | 2022-03-11 00:00 | BMI | 48.7 | kg/m2 | + + + +---------+ | 2022-03-11 00:00 | BP_diastolic | 68 | mmHg | + + + +---------+ | 2022-03-11 00:00 | BP_systolic | 145 | mmHg | + + + +---------+ | 2022-03-11 00:00 | heart_rate | 88 | /min | + + + +---------+ | 2022-03-11 00:00 | height_metric | 154.94 | cm | + + + +---------+ | 2022-03-11 00:00 | height_standard | 61 | in | + + + +---------+ | 2022-03-11 00:00 | o2_saturation | 99 | % | + + + +---------+ | 2022-03-11 00:00 | respiration_rate | 18 | /min | + + + +---------+ | 2022-03-11 00:00 | temperature_metric | 37.17 | C | | | | | | + + + +---------+ | 2022-03-11 00:00 | | 98.9 | F | | | temperature_standar | | | | | d | | | + + + +---------+ | 2022-03-11 00:00 | weight_metric | 117 | kg | + + + +---------+ | 2022-03-11 00:00 | weight_standard | 257.94 | lb | + + + +---------+"
--- OUTSIDE RECORDS SUMMARY | ~2022-10-12 | XMS | Continuity of Care Document ---
Demographics + + + | Address | [address] [facility] [place] [place] [address] | | | [place] [address] | + + + | Preferred Language | Unknown | + + + | Marital Status | | + + + | Methodist Affiliation | Unknown | + + + | Race | White | + + + | Ethnic Group | Not or | + + + Author + + + | Author | [facility] | + + + | Organization | [facility] | + + + | Address | [address] | | | [place] [address] | + + + | Phone | | + + + Care Team Providers + + + + | Care Range Aide Name | Role | Phone | + + + + Unavailable | Unavailable | + + + + Unavailable | Unavailable | + + + + Allergies and Intolerances + + + + + + | date | description | facility | reaction | severity | + + + + + + | (no date) | [place] | [facility] | (no reaction) | (no severity) | | | | [facility] | | | + + + + + + | (no date) | [place] | [facility] | (no reaction) | (no severity) | | | | [facility] | | | + + + + + + Encounters No information. Functional Status No information. Immunizations + + + + | date | description | facility | + + + + | 2020-07-21 00:00 | Tdap | [facility] | + + + + Medications + + + + | date | description | facility | + + + + | 2022-03-11 00:00 | ONDANSETRON HCL | [facility] | + + + + | 2022-03-11 00:00 | OXYCODONE | [facility] | | | HCL/ACETAMINOPHEN | | + + + + | 2022-03-11 00:00 | CALCIUM CARBONATE/VITAMIN | [facility] | | | D3 | | + + + + | 2022-03-11 00:00 | TOPIRAMATE | [facility] | + + + + | 2016-12-26 00:00 | ESTRADIOL | [facility] | + + + + | 2022-03-11 00:00 | IBUPROFEN | [facility] | + + + + | 2022-03-11 00:00 | LORAZEPAM | [facility] | + + + + | 2022-03-11 00:00 | OMEPRAZOLE MAGNESIUM | [facility] | + + + + | 2022-03-11 00:00 | SPIRONOLACTONE | [facility] | + + + + | 2022-03-11 00:00 | FLUOXETINE HCL | [facility] | + + + + | 2022-03-11 00:00 | LORATADINE | [facility] | + + + + | 2022-03-11 00:00 | SUMATRIPTAN SUCCINATE | [facility] | + + + + | 2022-03-11 00:00 | PAROXETINE HCL | [facility] | + + + + | 2022-03-11 00:00 | ASPIRIN | [facility] | + + + + | 2022-03-11 00:00 | SUMATRIPTAN SUCCINATE | [facility] | + + + + | 2022-03-11 00:00 | AMOXICILLIN | [facility] | + + + + | 2022-03-11 00:00 | FLUOXETINE HCL | [facility] | + + + + | 2022-03-11 00:00 | GABAPENTIN | [facility] | + + + + | 2015-05-31 00:00 | predniSONE | [facility] | + + + + | 2022-03-11 00:00 | predniSONE | [facility] | + + + + | 2022-03-11 00:00 | SUMATRIPTAN SUCCINATE | [facility] | + + + + | 2022-03-11 00:00 | ACETAMINOPHEN | [facility] | + + + + | 2020-07-21 00:00 | AMOXICILLIN/POTASSIUM CLAV | [facility] | | | | | + + + + | 2022-03-11 00:00 | CYCLOBENZAPRINE HCL | [facility] | + + + + | 2018-05-27 00:00 | | [facility] | | | SULFAMETHOXAZOLE/TRIMETHOPR | | | | IM DS | | + + + + | 2019-08-25 00:00 | | [facility] | | | SULFAMETHOXAZOLE/TRIMETHOPR | | | | IM DS | | + + + + | 2020-07-21 00:00 | HYDROCODONE | [facility] | | | BIT/ACETAMINOPHEN | | + + + + | 2022-03-11 00:00 | HYDROCODONE | [facility] | | | BIT/ACETAMINOPHEN | | + + + + | 2015-08-21 00:00 | HYDROCODONE | [facility] | | | BIT/ACETAMINOPHEN | | + + + + | 2019-08-25 00:00 | HYDROCODONE | [facility] | | | BIT/ACETAMINOPHEN | | + + + + | 2022-03-11 00:00 | HYDROCODONE | [facility] | | | BIT/ACETAMINOPHEN | | + + + + | 2022-03-11 00:00 | CHOLECALCIFEROL (VITAMIN | [facility] | | | D3) | | + + + + | 2022-03-11 00:00 | METOPROLOL SUCCINATE | [facility] | + + + + | 2022-03-11 00:00 | HYDROMORPHONE HCL | [facility] | + + + + | 2022-03-11 00:00 | Levothyroxine Sodium | [facility] | + + + + | 2022-03-11 00:00 | LEVOTHYROXINE SODIUM | [facility] | + + + + | 2022-03-11 00:00 | BUPROPION HCL | [facility] | + + + + | 2015-05-31 00:00 | | [facility] | | | GUAIFENESIN/DEXTROMETHORPHA | | | | N | | + + + + Problems + + + + | date | description | facility | + + + + | 2014-01-04 00:00 | Drug overdose | [facility] | + + + + | 2015-04-20 00:00 | Headache | [facility] | + + + + | 2015-05-26 00:00 | Migraine | [facility] | + + + + | 2015-05-26 00:00 | Acute bronchitis | [facility] | + + + + | 2015-05-31 00:00 | Acute pharyngitis | [facility] | + + + + | 2015-05-31 00:00 | Asthma with acute | [facility] | | | exacerbation in adult | | + + + + | 2015-08-21 00:00 | Bursitis of left shoulder | [facility] | + + + + | 2015-10-12 00:00 | Flank pain | [facility] | + + + + | 2015-11-11 00:00 | Migraine headache | [facility] | + + + + | 2016-12-26 00:00 | Dysfunctional uterine | [facility] | | | bleeding | | + + + + | 2017-09-11 00:00 | Encounter for medical | [facility] | | | screening examination | | + + + + | 2019-09-17 00:00 | Heat exhaustion | [facility] | + + + + | 2020-07-21 00:00 | Horse bite | [facility] | + + + + | 2022-03-11 00:00 | Sciatica | [facility] | + + + + Procedures No [...]
[2022-10-12] MEDS ORDERED: AMOX TR-K CLV1 EAC1 PO (23:23)
[2022-10-12 23:40] VITALS: BP 125/96
== END 2022-10-12 23:53 | disposition home or self-care (01) ==
LOC: ED 21:04
DX: S51.852A Open bite of left forearm, initial encounter (principal); S51.851A Open bite of right forearm, initial encounter; W54.0XXA Bitten by dog, initial encounter; J45.909 Unspecified asthma, uncomplicated; E03.9 Hypothyroidism, unspecified; F17.200 Nicotine dependence, unspecified, uncomplicated; Z88.6 Allergy status to analgesic agent; Z91.018 Allergy to other foods; Z79.899 Other long term (current) drug therapy
CPT/HCPCS: 99283